=== PATIENT | female | born 1995 | race Caucasian/White ===

== ENCOUNTER 2020-05-28 15:02 | Emergency (ER) | payer MEDICAID, OTHER ==
[~2020-05-28] VITALS: Ht 172.7 cm; Wt 79.8 kg
[2020-05-28 16:15] LABS: BASOPHIL % 0.3 % (0-2); PLATELET COUNT 178 x10^3mcL (130-400); RED CELL DISTRIBUTION WIDTH 13.4 % (11.5-14.5)
[2020-05-28 16:22] LABS: CALCIUM 9.2 mg/dL (8.5-10.1); CARBON DIOXIDE 32.8 mmol/L (21-32); CHLORIDE SERUM 104 mmol/L (98-107); CREATININE SERUM 0.8 mg/dL (0.6-1.0); GFR1 > 60 mL/min; GLUCOSE SERUM 84 mg/dL (74-106); SODIUM SERUM 139 mmol/L (136-145)
[2020-05-28 16:26] VITALS: BP 106/66
[2020-05-28 16:26] LABS: ALKALINE PHOSPHATASE 30 U/L (46-116); ALT/SGPT 21 U/L (14-59); AMYLASE 46 U/L (25-115); AST/SGOT 16 U/L (15-37); BILIRUBIN TOTAL 0.7 mg/dL (0.20-1.00); LIPASE 107 IU/L (73-393); TOTAL PROTEIN, SERUM 7.1 g/dL (6.4-8.2)
[2020-05-28 17:11] LABS: microscopic required? NO
[2020-05-28 17:21] LABS: urine erythrocyte NEGATIVE (NEGATIVE)
== END 2020-05-28 17:19 | disposition home or self-care (01) ==
LOC: ED 15:02
PROVIDERS: Emergency Medicine
DX: S93.402A Sprain of unspecified ligament of left ankle, initial encounter (principal); X58.XXXA Exposure to other specified factors, initial encounter; Y93.89 Activity, other specified; Y92.89 Other specified places as the place of occurrence of the external cause; Y99.8 Other external cause status
CPT/HCPCS: J1885; J2405; J7030; Q0092

== ENCOUNTER → 2020-10-26 | Outpatient (CLI) | payer OTHER ==
[2020-10-26 14:08] LABS: BASOPHIL % 0.3 % (0.2-1.3); PLATELET COUNT 148 x10^3mcL (179-408); RED CELL DISTRIBUTION WIDTH 13.4 % (12.3-17.7)
[2020-10-27 08:06] LABS: RAPID PLASMA REAGIN Non Reactive (Non Reactive)
== END | disposition home or self-care (01) ==
LOC: LB 13:10
DX: Z34.90 Encounter for supervision of normal pregnancy, unspecified, unspecified trimester (principal); N30.00 Acute cystitis without hematuria; Z31.430 Encounter of female for testing for genetic disease carrier status for procreative management
CPT/HCPCS: 87491; 87591

== ENCOUNTER 2020-11-18 00:48 | Emergency (ER) | payer OTHER ==
[~2020-11-18] VITALS: Ht 172.7 cm; Wt 75.3 kg
[2020-11-18 00:55] VITALS: Ht 172.7 cm; Wt 75.3 kg
[2020-11-18 01:36] LABS: microscopic required? YES; urine erythrocyte TRACE (NEGATIVE)
[2020-11-18 01:39] LABS: BASOPHIL % 0.9 % (0.2-1.3); PLATELET COUNT 177 x10^3mcL (179-408); RED CELL DISTRIBUTION WIDTH 13.7 % (12.3-17.7)
[2020-11-18 02:35] VITALS: BP 116/78
== END 2020-11-18 02:35 | disposition home or self-care (01) ==
LOC: ED 00:48
PROVIDERS: Emergency Medicine
DX: O26.892 Other specified pregnancy related conditions, second trimester (principal); N93.9 Abnormal uterine and vaginal bleeding, unspecified; Z3A.14 14 weeks gestation of pregnancy

== ENCOUNTER → 2020-12-23 | Outpatient (CLI) | payer OTHER ==
[2020-12-23 16:35] LABS: BASOPHIL % 0.5 % (0.2-1.3); PLATELET COUNT 137 x10^3mcL (179-408)
[2020-12-23 16:36] LABS: RED CELL DISTRIBUTION WIDTH 15.3 % (12.3-17.7)
[2020-12-23 17:41] LABS: TOTAL IRON BINDING CAPACITY 273 ug/dL (250-450)
[2020-12-23 17:45] LABS: IRON 32 ug/dL (50-170)
== END | disposition home or self-care (01) ==
LOC: LB 16:07
DX: D64.9 Anemia, unspecified (principal)